=== PATIENT | female | born 1980 | race Caucasian/White ===

== ENCOUNTER 2017-07-20 12:58 | Emergency (ER) | payer BC ==
[2017-07-20 13:03] VITALS: TEMP 97.5
[2017-07-20 13:40] LABS: COLOR YELLOW; LEUKOCYTE ESTERASE,URINE NEGATIVE (NEGATIVE); NITRITE,URINE NEGATIVE (NEGATIVE)
[2017-07-20 13:51] LABS: BACTERIA TRACE /hpf (NONE SEEN); MUCUS TRACE /lpf (NONE-1+)
[2017-07-20] MEDS ORDERED: ONDANSETRON 4 MG/2 ML VIAL IVP ONE (14:22)
[2017-07-20] MEDS ORDERED: NS 1,000 ML IV ONE (14:22)
--- NOTE | 2017-07-20 14:25 | EDPHY ---
H & P Time Seen by Provider: 07/20/17 13:32 HPI/ROS: HPI Lower abdominal pain. 36-year-old female G1, P0 here by private vehicle. She reports onset of lower abdominal pain at 12:30 p.m. today. She has also had some dysuria and increased frequency with urination. She describes the pain is deep and cramping worse on the right side with radiation to her back. No history of trauma. She has not had any fever. She denies diarrhea. Last bowel movement earlier today and was normal. No bloody or melenic stool. Last menstrual period was 1 month ago. Denies vaginal bleeding or vaginal discharge. She has had nausea but no vomiting. ROS: Constitutional: No fever, no chills. No weakness. Eyes: No discharge. No changes in vision. ENT: No sore throat. No nasal congestion or rhinorrhea. Respiratory: No cough. No shortness of breath. Cardiac: No chest pain, no palpitations. Gastrointestinal: As above, no diarrhea. Genitourinary: No hematuria. No dysuria or increased frequency with urination. Musculoskeletal: No back pain. No neck pain. No myalgias or arthralgias. Skin: No rashes. Neurological: No headache. No focal weakness or altered sensation. Past medical history: PCOS, pyelonephritis, cholecystectomy. Social history: . Works as a fleet manager. No alcohol. Denies drugs. Physical Exam: General Appearance: Alert, she appears uncomfortable. This patient is responding to questions appropriately and in full sentences. This patient appears well-hydrated and well-nourished. Eyes: Pupils equal and round no pallor or injection. No lid edema, erythema or injection. Respiratory: There are no retractions, lungs are clear to auscultation with good air movement bilaterally. Cardiovascular: Regular rate and rhythm. No murmur. Gastrointestinal: Abdomen is soft with vague lower abdominal tenderness on palpation but worse in the right lower quadrant, no masses, bowel sounds normal. No focal tenderness at McBurney's point. No Moore sign. Neurological: Motor sensory function is grossly intact. Cranial nerves are normal. Gait is normal. Skin: Warm and dry, no rashes. Musculoskeletal: Neck is supple and nontender. Extremities are symmetrical. All joints range without pain or impingement. Psychiatric: No agitation. No depression. Database: EKG: Imaging: CT abdomen and pelvis with IV contrast: The appendix is well visualized and is normal. No CT evidence of ovarian torsion. Bilateral ovarian cyst noted. Probable uterine fibroid formation. Constipation noted. Study otherwise normal. Results were discussed with staff radiologist Dr. Anival Cooney. Procedures: Emergency department course: IV placed. She was placed on a monitor. Vital signs reviewed and are normal. She is afebrile. She was started on IV normal saline with 1 L to be given over the next hour. She was initially given 4 mg of IV Zofran for nausea and 0.5 mg of IV hydromorphone for pain. She consents to CT imaging to evaluate for appendicitis. 5:15 p.m., patient states she thinks her pain is coming back, patient has no contraindications to NSAIDs, no history of renal dysfunction. Her creatinine is normal. She was given 30 mg of IV Toradol. 5:20 p.m., patient re-evaluated, she is resting comfortably at this time. Repeat abdominal exam she is soft, nontender nondistended. Results of her CT scan and emergency department workup were discussed with her. She feels comfortable going home. Her will come and get her. Follow-up and return to emergency department precautions reviewed. She will also be given some magnesium citrate to treat her for constipation. After reviewing her medication allergies. She will be started on Keflex. Her urinalysis showed some blood only. But as noted above she is complaining of frequency and dysuria. She was discharged home in good condition Differential Diagnosis: The differential diagnosis on this patient includes but is not limited to dysmenorrhea, appendicitis, pyelonephritis, urinary tract infection, constipation. SBP, STI, volvulus, ovarian torsion unlikely. This represents a partial list of diagnoses considered. These considerations are based on history , physical exam, past history, reassessment and diagnostic testing. Smoking Status: Never smoked Constitutional: Initial Vital Signs Temperature (C) 36.4 C 07/20/17 13:01 Heart Rate 86 07/20/17 13:01 Respiratory Rate 18 07/20/17 13:01 Blood Pressure 131/75 H 07/20/17 13:01 O2 Sat (%) 99 07/20/17 13:01 O2 Delivery Mode Room Air Allergies/Adverse Reactions: clindamycin Allergy (Verified 07/20/17 13:00) Penicillins Allergy (Verified 07/20/17 13:00) Sulfa (Sulfonamide Antibiotics) Allergy (Verified 07/20/17 13:00) Home Medications: Medication Instructions Recorded Cephalexin [Keflex (*)] 500 mg PO Q6 7 Days cap 07/20/17 Medical Decision Making - Diagnostics Imaging Results: Imaging Impressions Abdomen CT 07/20/17 14:22 Impression: 1. Query constipation. 2. Enlarged heterogeneous uterus consistent with fibroid formation. 3. See above report for additional findings. Results called and discussed with Gisselle Montenegro MD on 07/20/2017 at 17 :10 - Data Points Laboratory Results: Laboratory Results 07/20/17 14:03 07/20/17 14:03 07/20/17 07/20/17 07/20/17 14:03 14:03 13:00 WBC 15.65 10^3/uL H 10^3/uL (3.80-9.50) RBC 4.97 10^6/uL 10^6/uL (4.18-5.33) Hgb 15.2 g/dL g/dL (12.6-16.3) Hct 43.7 % % (38.0-47.0) MCV 87.9 fL fL (81.5-99.8) MCH 30.6 pg pg (27.9-34.1) MCHC 34.8 g/dL g/dL (32.4-36.7) RDW 12.6 % % (11.5-15.2) Plt Count 235 10^3/uL 10^3/uL (150-400) MPV 10.8 fL fL (8.7-11.7) Neut % (Auto) 77.5 % H % (39.3-74.2) Lymph % (Auto) 13.8 % L % (15.0-45.0) [place] % (Auto) 7.0 % % (4.5-13.0) Eos % (Auto) 0.9 % % (0.6-7.6) Baso % (Auto) 0.4 % % (0.3-1.7) Nucleat RBC Rel Count 0.0 % % (0.0-0.2) Absolute Neuts (auto) 12.12 10^3/uL H 10^3/uL (1.70-6.50) Absolute Lymphs (auto) 2.16 10^3/uL 10^3/uL (1.00-3.00) Absolute Monos (auto) 1.10 10^3/uL H 10^3/uL (0.30-0.80) Absolute Eos (auto) 0.14 10^3/uL 10^3/uL (0.03-0.40) Absolute Basos (auto) 0.07 10^3/uL 10^3/uL (0.02-0.10) Absolute Nucleated RBC 0.00 10^3/uL 10^3/uL (0-0.01) Immature Gran % 0.4 % % (0.0-1.1) Immature Gran # 0.06 10^3/uL 10^3/uL (0.00-0.10) Sodium 145 mEq/L H mEq/L (134-144) Potassium 4.6 mEq/L mEq/L (3.5-5.2) Chloride 108 mEq/L mEq/L (97-110) Carbon Dioxide 22 mEq/l mEq/l (22-31) Anion Gap 15 mEq/L mEq/L (8-16) BUN 20 mg/dL mg/dL (7-23) Creatinine 0.8 mg/dL mg/dL (0.6-1.0) Estimated GFR > 60 Glucose 93 mg/dL mg/dL (70-100) Calcium 9.9 mg/dL mg/dL (8.5-10.4) Urine Color Urine Appearance Urine pH Ur Specific [place] Urine Protein Urine Ketones Urine Blood Urine Nitrate Urine Bilirubin Urine Urobilinogen Ur Leukocyte Esterase Urine RBC Urine WBC Ur Epithelial Cells Urine Bacteria Urine Mucus Urine Glucose Urine Test NEGATIVE 07/20/17 13:00 WBC RBC Hgb Hct MCV MCH MCHC RDW Plt Count MPV Neut % (Auto) Lymph % (Auto) [place] % (Auto) Eos % (Auto) Baso % (Auto) Nucleat RBC Rel Count Absolute Neuts (auto) Absolute Lymphs (auto) Absolute Monos (auto) Absolute Eos (auto) Absolute Basos (auto) Absolute Nucleated RBC Immature Gran % Immature Gran # Sodium Potassium Chloride Carbon Dioxide Anion Gap BUN Creatinine Estimated GFR Glucose Calcium Urine Color YELLOW Urine Appearance CLEAR Urine pH 5.0 (5.0-7.5) Ur Specific [place] 1.024 (1.002-1.030) Urine Protein NEGATIVE (NEGATIVE) Urine Ketones TRACE H (NEGATIVE) Urine Blood NEGATIVE (NEGATIVE) Urine Nitrate NEGATIVE (NEGATIVE) Urine Bilirubin NEGATIVE (NEGATIVE) Urine Urobilinogen NEGATIVE EU EU (0.2-1.0) Ur Leukocyte Esterase NEGATIVE (NEGATIVE) Urine RBC 5-10 /hpf H /hpf (0-3) Urine WBC 1-3 /hpf /hpf (0-3) Ur Epithelial Cells TRACE /lpf /lpf (NONE-1+) Urine Bacteria TRACE /hpf H /hpf (NONE SEEN) Urine Mucus TRACE /lpf /lpf (NONE-1+) Urine Glucose NEGATIVE (NEGATIVE) Urine Test Medications Given: Discontinued Medications Cephalexin HCl (Keflex) 500 mg PO EDNOW ONE PRN Reason: Protocol Stop: 07/20/17 17:22 Last Admin: 07/20/17 17:38 Dose: 500 mg Sodium Chloride (Ns) 1,000 mls @ 0 mls/hr IV EDNOW ONE; Wide Open PRN Reason: Protocol Stop: 07/20/17 14:23 Last Admin: 07/20/17 14:50 Dose: 1,000 mls Ketorolac Tromethamine (Toradol) 30 mg IVP EDNOW ONE Stop: 07/20/17 16:50 Last Admin: 07/20/17 17:07 Dose: 30 mg Magnesium Citrate (Magnesium Citrate) 300 ml PO ONCE ONE Stop: 07/20/17 17:36 Last Admin: 07/20/17 17:38 Dose: 300 ml Ondansetron HCl (Zofran) 4 mg IVP EDNOW ONE Stop: 07/20/17 14:23 Last Admin: 07/20/17 14:50 Dose: 4 mg Departure - Departure Disposition: Home, Routine, Self-Care Clinical Impression: Lower abdominal pain, Constipation Condition: Good Instructions: Cephalexin (By mouth), Constipation (ED), High Fiber Diet (ED), Abdominal Pain (ED) Additional Instructions: Read and follow provided instructions. Follow-up with your primary care physician in 1-2 days for re-evaluation. Take medication as prescribed for treatment of urinary tract infection through entire course of treatment. Do not take ibuprofen until tomorrow morning at the earliest. Ibuprofen dosing : 600 mg every 6 hours with meals for the next 3 days only. Take only as needed for pain. Return to the emergency department for worsening symptoms, worsening abdominal pain, vomiting, unusual vaginal bleeding, fever or other serious concerns. Referrals: Daron Arce MD [Primary Care Provider] - As per Instructions Prescriptions: Cephalexin [Keflex (*)] 500 mg PO Q6 7 Days cap
[2017-07-20 14:55] VITALS: RESP 16
[2017-07-20 14:57] LABS: % IMMATURE GRANULYOCYTES 0.4 % (0.0-1.1); ABSOLUTE IMMATURE GRANULOCYTES 0.06 10^3/uL (0.00-0.10); ADD DIFF? NO; ADD MORPH? NO; ADD SCAN? NO; ATYPICAL LYMPHOCYTE FLAG 0 (0-99); FRAGMENT RBC FLAG 0 (0-99); HEMATOCRIT 43.7 % (38.0-47.0); HEMOGLOBIN 15.2 g/dL (12.6-16.3); LEFT SHIFT FLG 0 (0-99); LIPEMIA HEMOLYSIS FLAG 90 (0-99); MEAN CELL HEMOGLOBIN 30.6 pg (27.9-34.1); MEAN CELL HEMOGLOBIN CONCENTR. 34.8 g/dL (32.4-36.7); MEAN CELL VOLUME 87.9 fL (81.5-99.8); MEAN PLATELET VOLUME 10.8 fL (8.7-11.7); PLATELET CLUMPS FLAG 10 (0-99); PLATELET COUNT 235 10^3/uL (150-400); RED BLOOD CELL COUNT 4.97 10^6/uL (4.18-5.33); RED CELL DISTRIBUTION WIDTH 12.6 % (11.5-15.2)
[2017-07-20 15:19] LABS: ANION GAP 15 mEq/L (8-16); CALCIUM 9.9 mg/dL (8.5-10.4); CARBON DIOXIDE 22 mEq/l (22-31); CHLORIDE 108 mEq/L (97-110); CREATININE 0.8 mg/dL (0.6-1.0); GLOMERULAR FILTRATION RATE > 60; GLUCOSE 93 mg/dL (70-100); POTASSIUM 4.6 mEq/L (3.5-5.2); SODIUM 145 mEq/L (134-144)
[2017-07-20] MEDS ORDERED: IOPAMIDOL (ISOVUE-300) 100 ML BTL ONE (15:35)
[2017-07-20] MEDS ORDERED: KETOROLAC 30 MG/1 ML SDV IVP ONE (16:49)
[2017-07-20] MEDS ORDERED: CEPHALEXIN 500 MG CAP PO ONE ×2 (17:21→17:43)
[2017-07-20] MEDS ORDERED: MAGNESIUM CITRATE 300 ML BOTTLE PO ONE (17:35)
[2017-07-20 17:41] VITALS: BP 105/75; PULSE 84; O2SAT 95
== END 2017-07-20 17:42 | disposition home or self-care (01) ==
DX: K59.00 Constipation, unspecified (principal); E86.9 Volume depletion, unspecified; Z90.49 Acquired absence of other specified parts of digestive tract
CPT/HCPCS: 96374; J1885; J2405; Q9967

== ENCOUNTER 2018-05-08 07:06 | Day surgery (SDC) | payer BC ==
--- NOTE | 2018-04-22 19:23 | GHP ---
DATE OF PLANNED PROCEDURE: 05/08/2018. PLANNED PROCEDURE: Diagnostic laparoscopy, ablation of endometriosis, possible appendectomy. INDICATIONS: Patient is a 37-year-old 3, para 1-1-1-2, who called our office on 03/25/2018, complaining of severe abdominal pain. She had been seen at [facility] in [facility] for that pain on subsequently days, and because she was our existing patient presented to our office on 03/26/2018, with complaint of severe abdominal pain. Patient was writhing in pain at time of evaluation, so she was brought down to the emergency room and admitted for evaluation for recurrent persistent severe abdominal pain. Per patient's history, she has had several episodes of this over the last year and has been waiting to see the tender labor. The patient had a pelvic ultrasound done at one of the [facility] and was told that she had a small simple ovarian cyst which was causing her pain. Pelvic exam was benign in the emergency room, and the thought was that the pain was not CTRS in origin. The patient had an EGD and a colonoscopy during that admission, which were both benign. The patient has continued to have persistent episodes of pain and on reflection, states that the pain occurs right before she gets her cycle. She does have a long history of irregular cycles. The patient states that all the other providers are telling her that this is likely CTRS in origin or endometriosis. We had a long discussion about management options for this including hormonal management, which the patient is not a good candidate for due to her history of a TIA in 2014 versus continued expected management and tracking cycles and working with GI versus diagnostic laparoscopy. Patient is requesting diagnostic laparoscopy to assess for possible endometriosis. We discussed the risks and benefits of the surgery extensively. Patient desires to proceed with the surgery, despite the potential risks. The patient has been properly consented. MEDICAL HISTORY: Significant for chronic abdominal pain, history of anxiety and depression, polycystic ovarian syndrome, history of a TIA versus CVA in 2014 , we are still awaiting records on that. She had a negative thrombophilia workup following that. She was on control pills at the time. MEDICATIONS: Zoloft 100 mg, pain medications as needed. SURGICAL HISTORY: Laparoscopic cholecystectomy, colonoscopy, EGD, dilation and curettage x2. ALLERGIES: Sulfa, penicillin, clindamycin, triclosan which is in the prep, so patient should be prepped with Betadine. SOCIAL HISTORY: Patient is . She denies tobacco or drug use. She does drink 1-2 alcoholic beverages a week. FAMILY MEDICAL HISTORY: Noncontributory. DISABILITY EXAMINER HISTORY: Menarche age 14. Periods are very irregular, lasting 6-7 days. She is a 3, para 1-1-1-2. In 12/2011, she had a spontaneous vaginal delivery of a 4 pound 12 ounce female at 31 and 6/7 weeks gestation. In 2014, she had a spontaneous delivery of a full-term baby. In 2016, she had a missed which was initially thought to be a molar , but pathology was negative. Patient denies any history of any abnormal Pap smears or sexually transmitted diseases. REVIEW OF SYSTEMS: A 10-point review of systems is negative with the exception of the above-mentioned pertinent positives. PHYSICAL EXAMINATION: VITAL SIGNS: The patient's vital signs are stable. GENERAL APPEARANCE: Alert and oriented x3. PSYCH: Appropriate affect. NECK: Mobile and supple. HEART: Rate is regular. LUNGS: Clear to auscultation bilaterally. ABDOMEN: Soft, nondistended, nontender. No guarding or rebound is noted. No organomegaly is noted. EXTREMITIES: No calf tenderness or edema. PELVIC: Mobile mid position uterus with no adnexal masses. ASSESSMENT/PLAN: A 37-year-old, 3, para 1-1-1-2 with recurrent cyclical abdominal pain. We have discussed the possibility of endometriosis, but more likely a Gastroenterology etiology. Patient requests diagnostic laparoscopy to rule out endometriosis. We also discussed the possibility if there is any signs of appendicitis or chronic appendix pain or inflammation or adhesions on the appendix, I will have General Surgery come in and consult and do an appendectomy at time of surgery. Questions been answered. Risks and benefits have been reviewed with the patient. Patient has been properly consented. /[id number]/MODL MTDD
[2018-05-08] MEDS ORDERED: LR 1,000 ML IV ONE (07:27)
[2018-05-08] MEDS ORDERED: MIDAZOLAM 2 MG/2 ML VIAL IVP ONE (08:30)
--- NOTE | 2018-05-08 08:33 | PDANEPAE ---
ANE History of Present Illness 37 year old female for laparoscopy for pelvic pain. ANE Past Medical History - Cardiovascular History Hx Hypertension: No Hx Arrhythmias: No Hx Chest Pain: No Hx Coronary Artery / Peripheral Vascular Disease: No Hx CHF / Valvular Disease: No Hx Palpitations: No - Pulmonary History Hx COPD: No Hx Asthma/Reactive Airway Disease: No Hx Recent Upper Respiratory Infection: No Hx Oxygen in Use at Home: No Hx Sleep Apnea: No Sleep Apnea Screening Result - Last Documented: Negative - Neurologic History Hx Cerebrovascular Accident: Yes Hx Seizures: No Hx Dementia: No Neurologic History Comment: Mini-Stroke 05/2015, no residual - Endocrine History Hx Diabetes: No - Renal History Hx Renal Disorders: No - Liver History Hx Hepatic Disorders: No - Neurological & Psychiatric Hx Hx Neurological and Psychiatric Disorders: Yes Neurological / Psychiatric History Comment: h/o CVA. anxiety depression - Cancer History Hx Cancer: No - Congenital Disorder History Hx Congenital Disorders: No - GI History Hx Gastrointestinal Disorders: Yes Gastrointestinal History Comment: frequent diarrhea and constipation - Other Health History Other Health History: wears glasses. cysts on ovaries, have ruptured in past. polycystic ovaries - Chronic Pain History Chronic Pain: Yes (LRQ pain) - Surgical History Prior Surgeries: EGD/Colonoscopy 03/26/18. cholecsytectomy. 2 D&C's ANE Review of Systems Review of systems is: negative Review of Systems: - Exercise capacity METS (RN): 4 METS ANE Patient History - Allergies Allergies/Adverse Reactions: clindamycin Allergy (Verified 04/17/18 11:43) Hives Penicillins Allergy (Verified 04/17/18 11:43) Hives Sulfa (Sulfonamide Antibiotics) Allergy (Verified 04/17/18 11:43) Hives, anaphylaxis - Home Medications Home Medications: ALPRAZolam [Xanax 1 MG (*)] 1 mg PO DAILY PRN 03/26/18 [Last Taken 05/07/18] Codeine Phosphate/Guaifenesin [Guaifenesin-Codeine Syrup] 5 ml PO Q6HRS PRN [Last Taken Unknown] Dicyclomine [Bentyl 20 MG (*)] 20 mg PO BID PRN 03/26/18 [Last Taken Unknown] Sertraline HCl [Zoloft 100mg (*)] 100 mg PO DAILY 03/26/18 [Last Taken 05/07/18] - NPO status NPO Since - Liquids (Date): 05/07/18 NPO Since - Liquids (Time): 19:00 NPO Since - Solids (Date): 05/07/18 NPO Since - Solids (Time): 19:00 - Smoking Hx Smoking Status: Never smoked - Family Anes Hx Family Hx Anesthesia Complications: none ANE Labs/Vital Signs - Vital Signs Blood Pressure: 123/89 Heart Rate: 78 Respiratory Rate: 15 O2 Sat (%): 95 Height: 157.48 cm Weight: 61.235 kg ANE Physical Exam - Airway Neck exam: FROM Mallampati Score: Class 2 Mouth exam: normal dental/mouth exam - Pulmonary Pulmonary: no respiratory distress - Cardiovascular Cardiovascular: regular rate and rhythym - ASA Status ASA Status: I ANE Anesthesia Plan Anesthesia Plan: general endotracheal anesthesia
[2018-05-08] MEDS ORDERED: fentaNYL 250 MCG/5 ML INJ ONE (08:37)
[2018-05-08] MEDS ORDERED: PROPOFOL/EMULSION 500 MG/50 ML BOTTLE IV ONE (08:37)
[2018-05-08] MEDS ORDERED: SILVER NITRATE APPLICATOR 1 APPL TP ONE (08:40)
[2018-05-08] MEDS ORDERED: SCOPOLAMINE HYDROBROMIDE 1 MG/3 DAYS PATCH TD SCH (08:45)
--- NOTE | 2018-05-08 08:45 | PDHPUP ---
History & Physical Update H&P update statement: This history and physical update is based on an assessment of the patient which was completed after admission or registration (within 24 hours), but prior to the surgery/procedure. H&P update: H&P reviewed & patient examined, no change in patient's condition since H&P completed
[2018-05-08] MEDS ORDERED: BUPIVACAINE 0.5% 30 ML SDV ONE (09:16)
[2018-05-08] MEDS ORDERED: LR 500 ML IV PRN (09:27)
[2018-05-08] MEDS ORDERED: ALBUTEROL 3 ML DEYVIAL IH PRN (09:27)
[2018-05-08] MEDS ORDERED: NALOXONE HCL 0.4 MG/ML INJ IVP PRN (09:27)
[2018-05-08] MEDS ORDERED: LABETALOL HCL 5 MG/ML 20 ML MDV IVP PRN (09:27)
[2018-05-08] MEDS ORDERED: MEPERIDINE 25 MG/0.5 ML AMP IVP PRN (09:27)
[2018-05-08] MEDS ORDERED: PROMETHAZINE HCL 25 MG/ML INJ IVP PRN (09:27)
[2018-05-08] MEDS ORDERED: HYDROCODONE/APAP 5/325 TAB PO PRN (09:27)
[2018-05-08] MEDS ORDERED: ONDANSETRON 4 MG/2 ML VIAL IVP PRN (09:27)
[2018-05-08] MEDS ORDERED: DEXAMETHASONE 4 MG/ML VIAL IVP PRN (09:27)
[2018-05-08] MEDS ORDERED: HYDROmorphONE/DILAUDID 2 MG/ML INJ IVP PRN (09:27)
[2018-05-08] MEDS ORDERED: oxyCODONE IR 5 MG TAB PO PRN (09:27)
[2018-05-08] MEDS ORDERED: DIAZEPAM 5 MG/ML 1 ML SYR ONE (10:19)
[2018-05-08] MEDS ORDERED: DIAZEPAM 5 MG/ML 1 ML SYR IVP PRN (10:19)
--- NOTE | 2018-05-08 10:37 | POSTANESTH ---
Post Anesthetic Evaluation Cardiovascular Status: Normal, Stable Respiratory Status: Normal, Stable Level of Consciousness/Mental Status: Mildly Sleepy, Arousable Pain Control: Adequate, Prn Tx Ordered Nausea/Vomiting Control: Adequate, Prn Tx Ordered (Shaking treated with diazepam 5 mg IV with excellent response.)
[2018-05-08] MEDS ORDERED: ONDANSETRON 4 MG/2 ML VIAL ONE (10:38)
[2018-05-08] MEDS ORDERED: fentaNYL 100 MCG/2 ML INJ ONE (10:57)
[2018-05-08] MEDS: fentaNYL 100 MCG/2 ML INJ IVP PRN ×2 (10:59→11:24)
[2018-05-08] MEDS ORDERED: oxyCODONE IR 5 MG TAB ONE (12:37)
[2018-05-08 12:51] VITALS: BP 117/76
--- NOTE | 2018-05-09 20:25 | GOP ---
DATE OF OPERATION: 05/08/2018 SURGEON: Lorraine Gunter DO [employer]: Elia Kenny MD. ANESTHESIA: General endotracheal tube. ANESTHESIOLOGIST: Yu Gonzales MD. PREOPERATIVE DIAGNOSIS: Recurrent abdominal and pelvic pain. POSTOPERATIVE DIAGNOSIS: Recurrent abdominal and pelvic pain plus possible hyper mobile cecum. PROCEDURE PERFORMED: Diagnostic laparoscopy. FINDINGS: 1. Exam under anesthesia, mobile, retroverted uterus with no adnexal masses. 2. Laparoscopic findings: Retroverted uterus with possible adenomyosis. Normal ovaries and tubes. No endometriosis noted. Normal right upper quadrant status post cholecystectomy. Normal-appearing appendix. Possible hyper mobile cecum per Mohsen Vargas, who came in to evaluate intraoperatively. SPECIMENS: None. ESTIMATED BLOOD LOSS: 10 cc. INDICATIONS: Patient is a 37-year-old, 2, para 2-0-0-2, who has had recurrent abdominal pain . She has a history of irregular cycles and thinks that the pain is worse just before and during her period. She states it is in the mid upper abdomen and sometimes diffuse. She has been hospitalized multiple times for this evaluation. She has had an EGD and a colonoscopy. The gastroenterologists are suggesting that this is most likely endometriosis and encouraged her to have further evaluation w ith us. We had a long discussion about management options and the invasive nature and risks of surge ry with a low clinical suspicion of this for myself. The patient wished to proceed with a diagnostic laparoscopy just to be sure. Risks and benefits were extensively reviewed with the patient. The pa tient was properly consented. DESCRIPTION OF PROCEDURE: Patient was taken to the operating room with intravenous fluids in place. She was then placed on the operating room table in the dorsal supine position where general anesthes ia was obtained. She was then repositioned into the dorsal lithotomy position with the Yellofin stir rups and prepped and draped in the normal sterile fashion. Exam under anesthesia revealed a mobile a nd retroverted uterus with no adnexal masses. A speculum was then placed in the patient's vagina. A n Allis clamp was used to grasp the anterior lip of the cervix, which was well suspended, and the aco rn uterine manipulator was inserted. Attention was then turned to the patient's abdomen where a 5 mm skin incision was then made in the um bilicus. A 5 mm trocar was then advanced into the patient's abdomen under direct visualization with the laparoscope. The abdomen was then insufflated with a CO2 gas until an adequate pneumoperitoneum was achieved. The area underneath the trocar insertion site was explored and found to be unremarkabl e. The upper abdomen was explored with the laparoscope. No adhesions or any abnormalities were note d. Patient is status post cholecystectomy. A 5 mm skin incision was then made in the patient's left lower quadrant and a 5 mm trocar was then advanced into the patient's abdomen under direct visualiza tion with the laparoscope. A blunt probe was then inserted to help manipulate the organs. The patie nt was then placed in Trendelenburg position and the bowel was easily manipulated. The ovaries and f allopian tubes were unremarkable. The uterus appeared to be somewhat boggy and was either retroverte d or had a posterior fibroid noted but was unremarkable. No endometriosis lesions or implants were n oted anywhere in the pelvis, the pelvic sidewalls, or on the bowel. The appendix was easily identifi ed and appeared to be normal. Mohsen Vargas, general surgeon, came by the surgery to discuss patient 's abdomen. He agreed that the appendix was completely unremarkable and stated that the cecum could possibly be considered hyper mobile and could be consulted in the future for possible pexy of the cec um to the abdominal sidewall. Because the patient had been complaining of abdominal pain at time of surgery and it did not appear to be twisted or torsed, we decided to not proceed with that at this ti me of surgery and wanted to have further counseling on this. Again, the pelvis and abdomen were comp letely explored and no obvious etiologies of the pain were noted, so decision was made to terminate t he procedure. The CO2 gas was expressed from the patient's abdomen. The trocars were removed. The skin was closed with 4-0 Monocryl in a subcuticular fashion. Instruments were then removed from the patient's vagina and no bleeding was noted. The patient was returned to the dorsal supine position w here she was easily awoken from anesthesia. Sponge, lap, and needle count were correct x2. Patient was transferred to recovery room in stable condition. /[id number]/MODL
[2018-05-11] MEDS ORDERED: PATCH REMOVAL 1 EA PATCH TD SCH (08:35)
== END 2018-05-08 12:45 | disposition home or self-care (01) ==
LOC: UNDOADMOB 07:06 → F3E 07:06 → FSGY 07:06 → EDSTATUS 08:30 → FSGY 12:45
PROVIDERS: ATTEND Obstetrics & Gynecology
PROC: 0DJW4ZZ Inspection of Peritoneum, Percutaneous Endoscopic Approach (ICD-10-PCS; principal; 2018-05-08 08:30)
PROC: 0WJ Anatomical Regions, General, Inspection (ICD-10-PCS; principal; 2018-05-08 08:30)
DX: N85.4 Malposition of uterus (principal)
CPT/HCPCS: J2250; J2405; J2704; J3010; J3360

== ENCOUNTER 2018-08-25 05:45 | Observation (INO) | payer BC ==
--- NOTE | 2018-08-20 08:50 | GHP ---
Planned procedure is next week. Planned procedure is total laparoscopic hysterectomy with bilateral salpingectomy and General Surgery to perform cecum transfixation and appendectomy. INDICATIONS/HISTORY OF PRESENT ILLNESS: Patient is a 37-year-old, 3, para 1-1-1-2, who has h ad multiple episodes of severe incapacitating abdominal and pelvic pain over the last year and a half . Patient also has a longstanding history of PCOS and long irregular cycles and dysfunctional uterin e bleeding. She had a diagnostic laparoscopy in 03/2018 to assess for endometriosis, which was negat justin. However, the findings were suspicious for adenomyosis. The patient has had extensive GI workup and is not a candidate for control pills because of a history of a TIA on control pills. Patient has been extensively counseled on options for controlling her bleeding including endometria l ablation and a Mirena IUD. However, due to the extensive frustrating history of recurrent cyclical pain which seems to correlated with her periods, the patient is electing to proceed with a total lap aroscopic hysterectomy with bilateral salpingectomy. Risks and benefits have been extensively review ed with the patient. The patient has been properly consented. MEDICAL HISTORY: Persistent chronic abdominal and pelvic pain, history of anxiety and depression, po lycystic ovarian syndrome, a history of a TIA versus CVA in 2014, negative thrombophilia workup. She was on control pills at the time of the TIA. MEDICATIONS: Zoloft. SURGICAL HISTORY: Laparoscopic cholecystectomy, colonoscopy, EGD, dilation and curettage x2, and a d iagnostic laparoscopy. ALLERGIES: Sulfa, penicillin, clindamycin, and triclosan, which is in the prep. The patient should be prepped with Betadine. SOCIAL HISTORY: Patient is . She denies tobacco or drug use. She does drink 1-2 alcoholic b everages a week. FAMILY MEDICAL HISTORY: Noncontributory. TECHNICAL STAFF ASSISTANT HISTORY: Menarche age 14. Periods are very irregular. Last 6-7 days. She is a 3, p dat 1-1-1-2. In 12/2011, she had a spontaneous vaginal delivery of a 4 pounds 12 ounces female infan t at 31-6/7 weeks' gestation. In 2014, she had a spontaneous delivery of a full-term baby. In 2015, she had a missed for which she had a D and C. She denies any history of abnormal Pap smear s or sexually transmitted diseases. REVIEW OF SYSTEMS: 10-point review of systems negative with the exception of the above-mentioned per tinent positives. PHYSICAL EXAMINATION: VITAL SIGNS: Stable. GENERAL APPEARANCE: Alert and oriented x3. PSYCH: Ap propriate affect. MUSCULOSKELETAL: Grossly intact. NEURO: Grossly intact. NECK: Mobile and supp le. HEART: Rate is regular. LUNGS: Clear to auscultation bilaterally. ABDOMEN: Soft, nondistend ed, nontender. No guarding or rebound is noted. No organomegaly is noted. EXTREMITIES: No calf te nderness or edema. PELVIC: A mobile midposition uterus which is bulky posteriorly. No adnexal mass es are noted. IMAGING DATA: Pelvic ultrasound most recently was overall unremarkable. ASSESSMENT AND PLAN: A 37-year-old, 3, para 1-1-1-2 with a longstanding history of cyclical abdominal and pelvic pain, requesting definitive therapy with a total laparoscopic hysterectomy with bilateral salpingectomy. She will also have Dr. Mohsen Vargas do a cecum transfixation and an append ectomy at the same time of surgery due to suspicion for hypermobile cecum noted during her diagnostic laparoscopy. Risks and benefits and alternatives have been extensively reviewed with the patient, a nd patient has been properly consented. /[id number]/MODL
[2018-08-25] MEDS ORDERED: cefOXitin SODIUM 2 GM in NS 100 ML IV ONE (06:00)
[2018-08-25] MEDS ORDERED: LR 1,000 ML IV ONE (06:07)
[2018-08-25] MEDS ORDERED: metroNIDAZOLE 500 MG TAB PO ONE (06:07)
--- NOTE | 2018-08-25 06:58 | PDANEPAE ---
ANE History of Present Illness dysmenorrhea, appendicitis and here for lap hys and appe ANE Past Medical History - Cardiovascular History Hx Hypertension: No Hx Arrhythmias: No Hx Chest Pain: No Hx Coronary Artery / Peripheral Vascular Disease: No Hx CHF / Valvular Disease: No Hx Palpitations: No - Pulmonary History Hx COPD: No Hx Asthma/Reactive Airway Disease: No Hx Recent Upper Respiratory Infection: No Hx Oxygen in Use at Home: No Hx Sleep Apnea: No Sleep Apnea Screening Result - Last Documented: Negative - Neurologic History Hx Cerebrovascular Accident: Yes Hx Seizures: No Hx Dementia: No Neurologic History Comment: Mini-Stroke 05/2015, no residual - Endocrine History Hx Diabetes: No - Renal History Hx Renal Disorders: No - Liver History Hx Hepatic Disorders: No - Neurological & Psychiatric Hx Hx Neurological and Psychiatric Disorders: Yes Neurological / Psychiatric History Comment: Anxiety/depression - Cancer History Hx Cancer: No - Congenital Disorder History Hx Congenital Disorders: No - GI History Hx Gastrointestinal Disorders: Yes Gastrointestinal History Comment: INTERMITTENT diarrhea and constipation - Other Health History Other Health History: DYSFUNCTIONAL UTERINE BLEEDING. wears glasses. cysts on ovaries, have ruptured in past. polycystic ovaries - Chronic Pain History Chronic Pain: Yes (LRQ pain) - Surgical History Prior Surgeries: DIAG LAP 04/2018. EGD/Colonoscopy 03/26/18. cholecsytectomy. 2 D&C's ANE Review of Systems Review of Systems: - Exercise capacity METS (RN): 4 METS ANE Patient History - Allergies Allergies/Adverse Reactions: clindamycin Allergy (Verified 04/17/18 11:43) Hives Penicillins Allergy (Verified 04/17/18 11:43) Hives Sulfa (Sulfonamide Antibiotics) Allergy (Verified 04/17/18 11:43) Hives, anaphylaxis - Home Medications Home Medications: RX: ALPRAZolam [Xanax 1 MG (*)] 1 mg PO DAILY PRN 03/26/18 [Last Taken 08/25/18 05:00] Amitriptyline HCl [Elavil 10 mg (*)] 10 mg PO HS 08/12/18 [Last Taken 1 Month Ago ~07/25/18] Metamucil Powder PRN 08/18/18 [Last Taken 1 Month Ago ~07/25/18] Ceftin (*) 08/25/18 [Last Taken 08/24/18] - NPO status NPO Since - Liquids (Date): 08/25/18 NPO Since - Liquids (Time): 04:50 NPO Since - Solids (Date): 08/24/18 NPO Since - Solids (Time): 19:00 - Smoking Hx Smoking Status: Never smoked - Family Anes Hx Family Hx Anesthesia Complications: none ANE Labs/Vital Signs - Vital Signs Blood Pressure: 118/80 Heart Rate: 87 Respiratory Rate: 16 O2 Sat (%): 96 Height: 157.48 cm Weight: 63.503 kg ANE Physical Exam - Airway Neck exam: FROM Mallampati Score: Class 1 Mouth exam: normal dental/mouth exam - Pulmonary Pulmonary: no respiratory distress, no rales or rhonchi - Cardiovascular Cardiovascular: regular rate and rhythym, no murmur, rub, or gallop - ASA Status ASA Status: II ANE Anesthesia Plan Anesthesia Plan: general endotracheal anesthesia Total IV Anesthesia: No
[2018-08-25] MEDS ORDERED: MIDAZOLAM 2 MG/2 ML VIAL IVP ONE (07:03)
--- NOTE | 2018-08-25 07:13 | PDHPUP ---
History & Physical Update H&P update statement: This history and physical update is based on an assessment of the patient which was completed after admission or registration (within 24 hours), but prior to the surgery/procedure. H&P update: H&P reviewed & patient examined, no change in patient's condition since H&P completed (patient stated she as anaphylactic rxn to pcn however is currently on caphalosporin for sinus)
[2018-08-25] MEDS ORDERED: PHENYLEPHRINE HCL 100 MCG/ML SYR ONE (07:15)
[2018-08-25] MEDS ORDERED: fentaNYL 250 MCG/5 ML INJ ONE (07:15)
[2018-08-25] MEDS ORDERED: PROPOFOL 200 MG/20 ML VIAL ONE (07:15)
[2018-08-25] MEDS ORDERED: ROCURONIUM 100 MG/10 ML VIAL ONE (07:15)
[2018-08-25] MEDS ORDERED: LIDOCAINE 2% 100 MG/5 ML SYR ONE (07:15)
[2018-08-25] MEDS ORDERED: BUPIVACAINE 0.5% 30 ML SDV ONE (07:27)
[2018-08-25] MEDS ORDERED: HEPARIN 1000 UNIT/1 ML MDV ONE (07:27)
[2018-08-25] MEDS ORDERED: ceFAZolin 1 GM/5 ML SYR ONE (07:28)
[2018-08-25] MEDS ORDERED: METHYLENE BLUE 0.5% 50 MG/10 ML AMP ONE (09:10)
[2018-08-25] MEDS ORDERED: HYDROmorphONE/DILAUDID 2 MG/ML INJ ONE (09:25)
[2018-08-25] MEDS ORDERED: MAGNESIUM HYDROXIDE 30 ML UDCUP PO PRN (09:34)
[2018-08-25] MEDS ORDERED: BISACODYL 10 MG SUPP PR PRN (09:34)
[2018-08-25] MEDS ORDERED: LACTULOSE 20 GM/30 ML UDCUP PO PRN (09:34)
[2018-08-25] MEDS ORDERED: POLYETHYLENE GLYCOL 3350 17 GM PKT PO PRN (09:34)
[2018-08-25] MEDS ORDERED: LR 1,000 ML IV SCH (10:00)
[2018-08-25] MEDS ORDERED: HYDROmorphONE/DILAUDID 2 MG/ML INJ IVP PRN (10:07)
[2018-08-25] MEDS ORDERED: MEPERIDINE 25 MG/0.5 ML AMP IVP PRN (10:07)
[2018-08-25] MEDS ORDERED: NALOXONE HCL 0.4 MG/ML INJ IVP PRN (10:07)
[2018-08-25] MEDS ORDERED: DIAZEPAM 5 MG/ML 1 ML SYR IVP PRN (10:07)
--- NOTE | 2018-08-25 10:18 | POSTANESTH ---
Post Anesthetic Evaluation Cardiovascular Status: Normal, Stable Respiratory Status: Normal, Stable Level of Consciousness/Mental Status: Can Participate in Eval, Moderately Sleepy Pain Control: Adequate, Prn Tx Ordered Nausea/Vomiting Control: Adequate, Prn Tx Ordered Complications Possibly Related to Anesthesia: None Noted
[2018-08-25] MEDS ORDERED: fentaNYL 100 MCG/2 ML INJ ONE (10:26)
[2018-08-25] MEDS ORDERED: PROMETHAZINE HCL 25 MG/ML INJ ONE (10:26)
[2018-08-25] MEDS ORDERED: DIAZEPAM 5 MG/ML 1 ML SYR ONE (10:27)
--- NOTE | 2018-08-25 10:29 | GOP ---
DATE OF OPERATION: 08/25/2018 SURGEON: Lorraine Gunter DO [facility] TECHNOLOGIST: Uma Miller MD. ANESTHESIA: General endotracheal tube. ANESTHESIOLOGIST: Beatriz Vang DO. PREOPERATIVE DIAGNOSIS: Dysfunctional uterine bleeding, chronic pelvic pain, and chronic abdominal p ain. POSTOPERATIVE DIAGNOSIS: Dysfunctional uterine bleeding, chronic pelvic pain, and chronic abdominal pain. PROCEDURE PERFORMED: Total laparoscopic hysterectomy with bilateral salpingectomy and a cystoscopy. Dr. Mohsen Vargas is to perform an appendectomy and transfixation of the cecum following our procedur e. FINDINGS: 1. Exam under anesthesia mobile retroverted uterus with no adnexal masses. 2. Laparoscopic findings: Edematous uterus consistent with adenomyosis. Bilateral ovaries and tubes were unremarkable. Hyper mobile appendix and cecum. SPECIMENS: Bilateral fallopian tubes and uterus and cervix. ESTIMATED BLOOD LOSS: 100 cc. INDICATIONS: Patient is a 37-year-old, 3, para 1-1-1-2, who has a history of dysfunctional u terine bleeding and recurrent incapacitating abdominal pelvic pain over the last year and a half. Sh e had underwent a diagnostic laparoscopy earlier at the end of last year, which showed a suspected hy per mobile cecum. The patient has had a long history of irregular periods and is not a candidate for oral contraception. Management options were reviewed with the patient. Decision was made to procee d with a total laparoscopic hysterectomy with bilateral salpingectomy, and Dr. Vargas will perform an appendectomy and transfixation of the cecum. The risks and benefits have been reviewed with the gregorio ent. The patient has been properly consented. DESCRIPTION OF PROCEDURE: Patient was taken to the operating room with intravenous fluids in place. She was then placed on the operating room table in the dorsal supine position where general anesthes ia was obtained. She was then repositioned into the dorsal lithotomy position with the Yellofin stir rups and prepped and draped in a normal sterile fashion. A Sheldon catheter was then placed. Venodyne s were already on her lower extremities. She was given Cefoxitin and Flagyl intravenously prior to s urgery. A speculum exam was performed which showed a mobile retroverted uterus with no adnexal sobia s. The speculum was then placed in the patient's vagina. A single-tooth tenaculum was used to grasp the anterior lip of the cervix and the cervix sounded to 8 cm. A medium ROBB cup and the 6 cm tip were assembled and then inserted into the patient's cervix and the uterus was well manipulated. The atten tion was then turned to the patient's abdomen where a 5 mm skin incision was then made in the umbilic us after injecting with local. The 5 mm laparoscope was then advanced into the patient's abdomen und er direct visualization. The abdomen was then insufflated with CO2 gas until an adequate pneumoperit oneum was achieved. The area underneath the trocar insertion site was found to be unremarkable. The cecum and appendix were noted to be in the patient's left lower quadrant and on her last surgery had been in the right upper quadrant. A 5 mm incision was then made in the patient's right lower quadrant and a 5 mm trocar was then advanc ed into the patient's abdomen under direct visualization. A 10 mm incision was then made in the gregorio ent's left lower quadrant, and a 10 mm trocar was then advanced into the patient's abdomen under dire ct visualization. The uterus appeared to be mobile and edematous. The LigaSure was then used to per form a left salpingectomy, and the tube was then removed. The left round ligament was then clamped, cauterized, and transected, as well as the anterior posterior leaflet of the broad ligament. The blad nely flap was created anteriorly. The uterine arteries were skeletonized, clamped, cauterized, and tr ansected. The ROBB cup was then easily visualized and palpated. Attention was then turned to the right side, where salpingectomy was performed in a similar fashion, as well as the clamp, cauterization, and transection of the round ligament and broad ligaments. The uterine arteries were then clamped, cauterized, and transected after being skeletonized, and the blad nely flap was continued anteriorly. The ROBB ring was then palpated, and the colpotomy was performed with monopolar. This was done after the Pneumo Occluder balloon was inflated. The uterus was then w ithdrawn through the vagina and handed off the table. A glove and a sponge were then inserted into t he patient's vagina and the ureters were noted to still be peristalsing bilaterally. The vaginal cuf f remained hemostatic. The pedicles were hemostatic. V-Loc suture was then introduced and the vagin al cuff was closed in a running fashion. Hemostasis was achieved. Bilateral ureters were visualized peristalsing. Again, the upper abdomen was explored. The cecum was now in the patient's right mid abdomen. The pelvic sidewalls were evaluated and found to be hemostatic. The cuff was irrigated and found to be hemostatic. The pneumoperitoneum insufflation was then turned off. Attention was then turned to the patient's bl adder. A cystoscopy was performed in the usual fashion. Bilateral ureteral jets were noted to be fl owing. The bladder was then drained, and the Sheldon catheter was then reinserted. A speculum exam wa s performed. The vaginal cuff was hemostatic and unremarkable. At that time, Dr. Vargas then scrubbe d in and completed the appendectomy and transfixation of the cecum. The sponge, lap, and needle coun t were correct x2. Patient was transported to recovery room in stable condition. /[id number]/MODL
[2018-08-25] MEDS: fentaNYL 100 MCG/2 ML INJ IVP PRN ×3 (10:30→11:10)
[2018-08-25] MEDS ORDERED: MEPERIDINE 25 MG/0.5 ML AMP ONE (10:31)
[2018-08-25] MEDS: PROMETHAZINE HCL 25 MG/ML INJ IVP PRN ×3 (10:33→11:09)
[2018-08-25] MEDS ORDERED: SCOPOLAMINE HYDROBROMIDE 1 MG/3 DAYS PATCH TD ONE ×2 (11:18→11:30)
[2018-08-25] MEDS: KETOROLAC 30 MG/1 ML SDV IVP SCH ×3 (12:58→22:11)
--- NOTE | 2018-08-25 16:31 | SOAPPROG ---
SOAP Progress Note Assessment/Plan: Assessment: pod#0 s/p tlh bs appendectommy cecumpexy uncomplicated post operative course Plan: 08/25/18 16:29 Subjective: patient is doing well. has gotten up to void twice already. pain is controlled. most of pain is at the left lower quadrant site. no vaginal bleeding. tolerating clears. Objective: Vital Signs Temp Pulse Resp BP Pulse Ox 36.9 C 103 H 14 100/58 L 99 08/25/18 15:45 08/25/18 15:45 08/25/18 15:45 08/25/18 15:45 08/25/18 15:45 08/24/18 08/25/18 08/26/18 05:59 05:59 05:59 Intake Total 2025 Output Total 675 Balance 1350 Physical Exam - Physical Exam General Appearance: WD/WN, alert, no apparent distress Respiratory: chest non-tender, lungs clear, normal breath sounds Cardiac/Chest: normal peripheral pulses, regular rate, rhythm Abdomen: normal bowel sounds, non-tender, soft Skin: normal color, warm/dry Extremities: normal range of motion, non-tender, normal inspection, normal capillary refill Neuro/Psych: no motor/sensory deficits, alert, normal mood/affect, oriented x 3 ICD10 Worksheet Patient Problems: Problems Problem Status Onset Dysfunctional uterine bleeding Acute Abdominal pain Acute History of depression Acute History of delivery, currently Acute (spontaneous vaginal delivery) Acute
[2018-08-25] MEDS: ACETAMINOPHEN 500 MG TAB PO SCH (18:22)
[2018-08-25] MEDS: ONDANSETRON 4 MG/2 ML VIAL IVP PRN (18:31)
[2018-08-25] MEDS: oxyCODONE IR 5 MG TAB PO PRN ×2 (19:34→20:24)
[2018-08-26] MEDS: SENNOSIDES/DOCUSATE SODIUM TAB PO SCH ×2 (00:20→09:32)
[2018-08-26] MEDS: oxyCODONE IR 5 MG TAB PO PRN ×4 (03:23→14:11)
[2018-08-26] MEDS: KETOROLAC 30 MG/1 ML SDV IVP SCH (03:24)
[2018-08-26] MEDS: ACETAMINOPHEN 500 MG TAB PO SCH ×4 (04:56→15:12)
[2018-08-26] MEDS ORDERED: ENOXAPARIN 40 MG/0.4 ML SYR SC SCH (09:00)
[2018-08-26] MEDS: IBUPROFEN 600 MG TAB PO SCH ×2 (09:32→15:11)
[2018-08-26] MEDS: ONDANSETRON 4 MG/2 ML VIAL IVP PRN (12:13)
--- NOTE | 2018-08-26 15:34 | SOAPPROG ---
SOAP Progress Note Assessment/Plan: Assessment: pod#1 s/p tlh bs appendectommy cecumpexy uncomplicated post operative course pain management discussed discharge instructions discussed 08/26/18 15:31 Subjective: patient is doing well overall. was very tearful due to pain after her first walk in the [place]. pain better controlled now. got morphine a few hours ago which caused nausea. doing better on oxy ir. discussed pain control strategies at home. ambulating. ice and heat. patient voiding without difficulty. passed a small clot but no further vaginal bleeding. ready to be home. discussed follow up . Objective: Vital Signs Temp Pulse Resp BP Pulse Ox 36.6 C 92 16 105/64 95 08/26/18 12:00 08/26/18 12:00 08/26/18 12:00 08/26/18 12:00 08/26/18 14:51 Laboratory Results 08/26/18 05:45 08/25/18 08/26/18 08/27/18 05:59 05:59 05:59 Intake Total 3300 Output Total 1350 650 Balance 1950 -650 Physical Exam - Physical Exam General Appearance: WD/WN, alert, no apparent distress Neck: non-tender, full range of motion, supple Respiratory: chest non-tender, lungs clear, normal breath sounds Cardiac/Chest: normal peripheral pulses, regular rate, rhythm Abdomen: normal bowel sounds, non-tender, soft Skin: normal color, warm/dry, other (incision clean dry and intact) Lymphatic: no adenopathy Extremities: normal range of motion, non-tender, normal inspection, normal capillary refill Neuro/Psych: no motor/sensory deficits, alert, normal mood/affect, oriented x 3 ICD10 Worksheet Patient Problems: Problems Problem Status Onset Dysfunctional uterine bleeding Acute Abdominal pain Acute History of depression Acute History of delivery, currently Acute (spontaneous vaginal delivery) Acute
[2018-08-26 17:25] VITALS: BP 105/70
--- NOTE | 2018-08-27 05:37 | GOP ---
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 PROCEDURE PERFORMED: Laparoscopic appendectomy and right cecopexy . FINDINGS: The patient was found to have a relatively normal-appearing appendix. She had a completel y mobile cecum, which was over in the left upper quadrant, had to be returned back to its normal posi tion in the right lower quadrant. DESCRIPTION OF PROCEDURE: The patient was undergoing laparoscopic hysterectomy by Dr. Gunter. Her por t sites and instruments were used. An additional port site was placed in the suprapubic area. The c ecum was brought down into its normal location. The appendix was freed up and the mesoappendix was d ivided with the Harmonic scalpel until the base was skeletonized and that was then divided with the E ndo-HOMAR stapler. The specimen was then placed in a specimen bag and removed. Hemostasis was assured . Next, the cecum was secured to the right pelvic lateral abdominal wall. This was done with interrupt ed 3-0 PDS sutures. A peritoneal flap had been raised to pass over a portion of the colon and leave a raw spot for better fixation. This too was secured in place with interrupted 3-0 Vicryl sutures. The wound was dressed. She was taken to the recovery room in good condition. There were no complica tions. /[id number]/MODL
[2018-08-28] MEDS ORDERED: PATCH REMOVAL 1 EA PATCH TD ONE (11:30)
== END 2018-08-26 17:30 | disposition home or self-care (01) ==
LOC: F3E 05:45 → FOB 12:30
PROVIDERS: ADMIT Obstetrics & Gynecology; ATTEND Obstetrics & Gynecology
PROC: 0UT74ZZ Resection of Bilateral Fallopian Tubes, Percutaneous Endoscopic Approach (ICD-10-PCS; principal; 2018-08-25 07:15)
PROC: 0DTJ4ZZ Resection of Appendix, Percutaneous Endoscopic Approach (ICD-10-PCS; principal; 2018-08-25 07:15)
PROC: 0DSH4ZZ Reposition Cecum, Percutaneous Endoscopic Approach (ICD-10-PCS; principal; 2018-08-25 07:15)
PROC: 0UTC4ZZ Resection of Cervix, Percutaneous Endoscopic Approach (ICD-10-PCS; principal; 2018-08-25 07:15)
PROC: 0UT94ZZ Resection of Uterus, Percutaneous Endoscopic Approach (ICD-10-PCS; principal; 2018-08-25 07:15)
DX: N80.0 Endometriosis of uterus (principal); N92.5 Other specified irregular menstruation; R10.2 Pelvic and perineal pain; K59.8 Other specified functional intestinal disorders
CPT/HCPCS: 44970; 49329; 58571; G0378; J0694; J1170; J1650; J1885; J2001; J2175; J2250; J2270; J2370; J2405; J2550; J2704; J3010; J3360; Q9968

== ENCOUNTER 2018-08-27 10:12 | Emergency (ER) | payer BC ==
[2018-08-27 10:58] LABS: PLATELET COUNT 206 10^3/uL (150-400)
[2018-08-27] MEDS ORDERED: NS 500 ML IV ONE (11:16)
[2018-08-27] MEDS ORDERED: ONDANSETRON 4 MG/2 ML VIAL ONE ×2 (11:20→12:32)
--- NOTE | 2018-08-27 11:20 | EDPHY ---
H & P Stated Complaint: abd pain/anuria Time Seen by Provider: 08/27/18 10:44 HPI/ROS: CHIEF COMPLAINT: Unable to urinate HISTORY OF PRESENT ILLNESS: 37-year-old female 2 days postop presents with difficulty urinating. She underwent hysterectomy, salpingectomy, appendectomy and right cecoplexy 2 days ago. She was discharged from the hospital yesterday. She has been on oxycodone postoperatively. Onset of urinary hesitancy this morning. Feels that her bladder is full and that she needs to urinate, but is unable. No bowel movement postoperatively, does not feel the urge to have a bowel movement. No fever and no increase in abdominal pain. REVIEW OF SYSTEMS: complete 10 point ROS reviewed and is negative except for the noted elements in the HPI - Personal History LMP (Females 10-55): Hysterectomy Current Tetanus/Diphtheria Vaccine: Yes Tetanus Vaccine Date: 08/2014 - Medical/Surgical History Hx Asthma: No Hx Chronic Respiratory Disease: No Hx Diabetes: No Hx Cardiac Disease: No Hx Renal Disease: No Hx Cirrhosis: No Hx Alcoholism: No Hx HIV/AIDS: No Hx Splenectomy or Spleen Trauma: No Other PMH: hx ppd, rubella non immune, pyelo, hx gdm, recent sinus infection - Social History Smoking Status: Never smoked Alcohol Use: Sober Drug Use: None - Physical Exam Exam: General Appearance: Alert, pleasant Eyes: Pupils equal and round, no conjunctival pallor ENT, Mouth: Mucous membranes moist Neck: Normal inspection Respiratory: Lungs are clear to auscultation Cardiovascular: Regular rate and rhythm Gastrointestinal: Abdomen is soft, diffuse tenderness, surgical incisions are clean, dry and intact Neurological: A&O, nonfocal, slow and steady gait Skin: Warm and dry Extremities: Normal inspection Psychiatric: Mood and affect normal Constitutional: Initial Vital Signs Temperature (C) 36.5 C 08/27/18 10:17 Heart Rate 103 H 08/27/18 10:17 Respiratory Rate 25 H 08/27/18 10:17 Blood Pressure 152/97 H 08/27/18 10:17 O2 Sat (%) 98 08/27/18 10:17 O2 Delivery Mode Room Air Allergies/Adverse Reactions: clindamycin Allergy (Verified 08/27/18 10:19) Hives Penicillins Allergy (Verified 08/27/18 10:19) Hives Sulfa (Sulfonamide Antibiotics) Allergy (Verified 08/27/18 10:19) Hives, anaphylaxis Home Medications: Medication Instructions Recorded ALPRAZolam [Xanax 1 MG (*)] 1 mg PO DAILY PRN 03/26/18 Ibuprofen [Motrin (*)] 600 mg PO Q6HRS PRN #90 03/29/18 oxyCODONE IR [Oxycodone Ir (*)] 5 - 10 mg PO Q3HRS PRN #20 tab 05/08/18 Amitriptyline HCl [Elavil 10 mg 10 mg PO HS 08/12/18 (*)] Psyllium Husk (with Sugar) 1 each PO DAILY PRN 08/18/18 [Metamucil Packet] Cefuroxime Axetil [Ceftin (*)] 250 mg PO BID 08/25/18 Acetaminophen [Tylenol ES 500 mg 1,000 mg PO Q8HRS tab 08/26/18 (*)] Ibuprofen [Motrin (*)] 600 mg PO Q6HRS tab 08/26/18 oxyCODONE IR [Oxycodone Ir (*)] 5 - 10 mg PO Q4HRS PRN #30 tab 08/26/18 Phenazopyridine HCl [Pyridium] 200 mg PO TID #10 tab 08/27/18 Medical Decision Making - Diagnostics Imaging Results: Abdomen CT 08/27/18 12:40 Impression: 1. Status post hysterectomy and appendectomy. Small amount of free fluid in the pelvis. Small amount of free intraperitoneal air and air in the abdominal wall are appropriate for the surgery two days ago. 2. Moderate constipation. 3. Status post cholecystectomy. Mild dilatation of the intrahepatic bile ducts and enlargement of the common bile duct that can be seen with patient being status post cholecystectomy, similar in appearance. 4. No other significant interval change. Results called and discussed with Dr. Mary Moore on 08/27/2018, 13:26. Imaging: Discussed imaging studies w/ call out operator Radiologist, I viewed and interpreted images myself ED Course/Re-evaluation: This patient presents with urinary symptoms after recent operation. Bladder scan: 125mls urine present, no evidence urinary retention. Will obtain a urinalysis to rule out UTI. IV normal saline 500 mL given. Urinalysis is reveals microscopic hematuria, no evidence of urinary tract infection. Patient now complaining of severe abdominal pain. Morphine IV given. Will proceed with CT scan of the abdomen and pelvis. CT scan is unremarkable. No evidence of postoperative infection or other complication, such as SBO. Dr. Jennifer Vargas was consulted and saw the patient in the ED. Suggests financial services sales representative consultation. Buyer Internship consulted, discussed with Dr. Maloney at 3pm, Dr. Miller will c/b and see pt in ED. Pyridium 200mg orally given for urinary sx. 3:10pm: d/w Dr. Miller, will see pt in ED. Toradol IV given. Pt d/c'd home after Dr. Miller saw pt. Will f/u in office. Differential Diagnosis: Differential diagnosis includes though it is not limited to appendicitis, cholecystitis, diverticulitis, pyelonephritis, bowel perforation, small bowel obstruction. - Data Points Laboratory Results: Laboratory Results 08/27/18 10:44 08/27/18 10:44 Medications Given: Discontinued Medications Diphenhydramine HCl (Benadryl Injection) 50 mg IVP EDNOW ONE Stop: 08/27/18 15:47 Last Admin: 08/27/18 15:51 Dose: 50 mg Sodium Chloride (Ns) 500 mls @ 1,000 mls/hr IV EDNOW ONE PRN Reason: Protocol Stop: 08/27/18 11:45 Last Admin: 08/27/18 11:25 Dose: 500 mls Ketorolac Tromethamine (Toradol) 15 mg IVP EDNOW ONE Stop: 08/27/18 13:27 Last Admin: 08/27/18 13:33 Dose: 15 mg Ketorolac Tromethamine (Toradol) 15 mg IVP EDNOW ONE Stop: 08/27/18 15:11 Last Admin: 08/27/18 15:33 Dose: 15 mg Morphine Sulfate (Morphine) 6 mg IVP EDNOW ONE Stop: 08/27/18 12:38 Last Admin: 08/27/18 12:47 Dose: 6 mg Ondansetron HCl (Zofran) 4 mg IVP EDNOW ONE Stop: 08/27/18 12:38 Last Admin: 08/27/18 13:25 Dose: Not Given Oxycodone HCl (Oxycodone Ir) 5 mg PO EDNOW ONE Stop: 08/27/18 12:34 Last Admin: 08/27/18 12:47 Dose: 5 mg Phenazopyridine HCl (Pyridium) 200 mg PO EDNOW ONE Stop: 08/27/18 14:38 Last Admin: 08/27/18 14:56 Dose: 200 mg Departure - Departure Disposition: Home, Routine, Self-Care Clinical Impression: Postoperative abdominal pain, Urinary urgency Condition: Good Instructions: Acute Abdominal Pain (ED), Urinary Urgency and Frequency (DC) Additional Instructions: Return for worsening symptoms or any concerns. Referrals: Lorraine Gunter DO [Doctor of Osteopathy] - As per Instructions Prescriptions: Phenazopyridine HCl [Pyridium] 200 mg PO TID #10 tab
[2018-08-27] MEDS ORDERED: OXYCODONE/APAP 5/325 TAB ONE (12:32)
[2018-08-27] MEDS ORDERED: oxyCODONE IR 5 MG TAB PO ONE (12:33)
[2018-08-27] MEDS ORDERED: ONDANSETRON 4 MG/2 ML VIAL IVP ONE (12:37)
[2018-08-27] MEDS ORDERED: IOPAMIDOL (ISOVUE 370) 75 ML BTL IV ONE (12:49)
[2018-08-27] MEDS ORDERED: KETOROLAC 15 MG/1 ML SDV IVP ONE ×2 (13:26→15:10)
[2018-08-27] MEDS ORDERED: PHENAZOPYRIDINE HCL 200 MG TAB PO ONE (14:37)
[2018-08-27 16:39] VITALS: BP 127/90
--- NOTE | 2018-08-27 21:28 | EDV ---
DATE OF SERVICE: 08/27/2018 HISTORY UPON CONSULTATION: The patient is a 37-year-old, 2-days status post a TLH, BS, appendectomy and right cecopexy, who presented complaining of pressure in her pelvis and pain. The patient has be en evaluated by the emergency room physician who does not find any etiology for the pain or different bladder sensations. The patient reports that she was only having small voids prior to discharge and felt like pressure was building in her pelvis. She felt she really was not able to void completely at home. After coming into the emergency room, the patient and her supportive friend state that she did go to the bathroom and actually had a complete void. She states that the pressure sensation has not diminished since that void. The patient was using oxycodone after discharge regularly, but space d out to about 6 hours and felt she was having good pain control. She stated her last dose was appro ximately 8 a.m., and at the time she was in the emergency room, her pain was really building up, as s he was getting farther out from her pain medication. Current emergency room evaluation has already included a urinalysis that was negative other than 2+ b lood, normal lab values including normal hematocrit and white count, CT scan that does not reveal any mass or evidence of injury, abdominal bleeding, surgical consult with Dr. Vargas who does not feel an ything is abnormal. The patient also had a bladder scan after she voided and she did not have any si gnificant postvoid residual. REVIEW OF SYSTEMS: As noted, for positives and negatives in the HPI. See previous H and P from the surgery 2 days ago for full details. PHYSICAL EXAM: Limited exam. VITAL SIGNS: The patient's vital signs show that the patient is afebr ile. Her blood pressure is in the 140s to 150s over 90s, heart rate in the 100, respiratory rate nor mal, O2 sats normal. ABDOMEN: Four small incisions with Steri-Strips in place and evidence of only o ld dried blood. The abdomen is soft and nondistended. Patient has appropriate postoperative discomf ort around the incisions. PELVIC: Exam is not performed. EXTREMITIES: Nontender and no edema. ASSESSMENT: Two-day postoperative after total laparoscopic hysterectomy, bilateral salpingectomy, ap pendectomy, cecopexy. The patient was advised of the normal findings of all the previous assessment from the emergency room physician and reassurance is given. 20 minutes was spent [id number] with the patient discussing her findings and making a plan. Suspec t the patient might of had over distention of her bladder, but good reassurance that now she has comp letely voided and she has no significant residual in her bladder. Option discussed with the patient of placing a catheter to have her retain for a week to give the bladder a rest, but I do not feel micaela t is necessary. The patient would like to avoid. The patient reports that she really does not get t he same sensory if her bladder is filling or actually when it is emptying, and I advised her to emelia nue timed voids at least every 4-5 hours to avoid overdistention. The patient will continue to use O xy as needed and try to diminish over the next several days. The patient is reassured by the finding s and that it does not look like there is anything adversely from surgery going on in her pelvis givi ng her the symptoms. PLAN: The patient will follow up with Dr. Gunter as previously scheduled. /[id number]/MODL
== END 2018-08-27 16:43 | disposition home or self-care (01) ==
DX: R39.198 Other difficulties with micturition (principal); G89.18 Other acute postprocedural pain; E86.9 Volume depletion, unspecified; Z90.710 Acquired absence of both cervix and uterus; Z90.89 Acquired absence of other organs
CPT/HCPCS: 96374; J1200; J1885; J2270; J2405; Q9967

== ENCOUNTER → 2018-09-18 | Outpatient (CLI) | payer BC ==
[~2018-09-18] MED LIST: IOHEXOL 300 mgI/ML (OMNIPAQUE) 150 ML BTL IV ONE
== END ==
LOC: EDSTATUS 16:16 → FIMAGING 16:18
PROVIDERS: ATTEND Obstetrics & Gynecology
DX: Z98.890 Other specified postprocedural states (principal); Z90.710 Acquired absence of both cervix and uterus
CPT/HCPCS: Q9967